=== PATIENT | male | born 1970 | race Caucasian/White ===

== ENCOUNTER 2017-08-14 19:52 | Emergency (ER) | payer BC ==
--- NOTE | 2017-08-14 22:15 | ER Document Report ---
HPI - HPI Patient complains to provider of: infested with skin worms Onset: Other - several weeks Quality of pain: No pain Pain Level: Denies Context: 47 yo male in by EMS due to tiny white worms that he gets out of his skin. Started on left ear. Showing me multiple pxs of them. House recently fumigated for bed bugs. Tx with anti parisitic Rx by Vinita Herron, has 1 pill left. Seen in another ER for this too. Never had Elimite. Finds them on his hair, body after sleeping in his chair. Associated Symptoms: None Exacerbated by: Denies Relieved by: Denies - ROS ROS below otherwise negative: Yes Systems Reviewed and Negative: Yes All other systems reviewed and negative Past Medical History - General Information source: Patient - Social History Smoking Status: Current Every Day Smoker Frequency of alcohol use: None Drug Abuse: None Lives with: Alone Family History: None Neurological Medical History: Reports: Hx Seizures Past Surgical History: Reports: Hx Orthopedic Surgery - multiple Vertical Provider Document - CONSTITUTIONAL Agree With Documented VS: Yes Exam Limitations: No Limitations General Appearance: No Apparent Distress - INFECTION CONTROL TRAVEL OUTSIDE OF THE [place] IN LAST 30 DAYS: No - HEENT HEENT: Normal ENT Exam - NECK Neck: Supple. negative: Lymphadenopathy-Left, Lymphadenopathy-Right - RESPIRATORY Respiratory: Breath Sounds Normal, No Respiratory Distress O2 Sat by Pulse Oximetry: 100 - CARDIOVASCULAR Cardiovascular: Regular Rate, Regular Rhythm - GI/ABDOMEN Gastrointestinal: Abdomen Soft, Abdomen Non-Tender - BACK Back: Normal Inspection - MUSCULOSKELETAL/EXTREMETIES Musculoskeletal/Extremeties: MAEW, FROM - NEURO Level of Consciousness: Awake, Alert, Appropriate - DERM Integumentary: No Rash - 3 deroofed 2mm abrasions dorsal left hand Course - Re-evaluation Re-evalutation: 08/14/17 22:11 pt is requesting to be admitted to avoid the worm infestation (possible bedbug nymphs). Told him he needs to call back he sapphire stylus grinder, stay at hotel. will also give Elimite which he has not used yet. Dr. Herron gave him oral antiparasitic that he has 1 more pill for. - Vital Signs Vital signs: Temp Pulse Resp BP Pulse Ox 97.9 F 78 18 108/75 100 08/14/17 20:02 08/14/17 20:02 08/14/17 20:02 08/14/17 20:02 08/14/17 20:02 Discharge - Discharge Clinical Impression: reported bedbug home infestation, possible worms on body Condition: Good Disposition: HOME, SELF-CARE Instructions: Anti-Mite Skin Creams, Insect Bites ([facility]) Additional Instructions: Elimite from neck to toes, wash off in 12 hours call the sapphire stylus grinder back tomorrow see Vinita Herron tomorrow Prescriptions: Permethrin [Elimite] 60 gm TP ONCE PRN #60 gm PRN Reason: Referrals: VINITA HERRON PA [ALLIED HEALTH PROFESSIONAL] - Follow up as needed
== END 2017-08-14 22:15 | disposition home or self-care (01) ==
LOC: ER 19:52
DX: Z20.7 Contact with and (suspected) exposure to pediculosis, acariasis and other infestations (principal); S60.512A Abrasion of left hand, initial encounter; X58.XXXA Exposure to other specified factors, initial encounter; F17.200 Nicotine dependence, unspecified, uncomplicated
CPT/HCPCS: 99282